=== PATIENT | male | born 1975 | race Caucasian/White ===

== ENCOUNTER 2019-02-25 02:36 | Emergency (ER) | payer OTHER ==
[2019-02-25] MEDS ORDERED: MAG HYDROX/AL HYDROX/SIMETH 30 ML UDCUP PO ONE (03:11)
[2019-02-25] MEDS ORDERED: LIDOCAINE 2% VISCOUS 15 ML UDCUP PO ONE (03:11)
--- NOTE | 2019-02-25 03:42 | EDPHY ---
H & P Stated Complaint: ACID REFLUX IN THROAT WHILE SLEEPING TONIGHT Time Seen by Provider: 02/25/19 02:59 HPI/ROS: Chief Complaint: Possible acid reflux HPI: 43-year-old male woke this morning with discomfort back of his throat with the acidic taste and hoarse voice. He has had this happen once before when he was visiting [facility] a in had been drinking heavily the night before. Patient denies any alcohol tonight. Heriberto about 7:00 a.m.. No chest pain. No shortness of breath. No cough. No headache. No nausea or vomiting. No diarrhea or constipation. No dark tarry stools. ROS: 10 systems were reviewed and were negative except those elements noted in the HPI. PMH: Denies Social History: No smoking, occasional alcohol, no recreational drug use Family History: non-contributory Physical Exam: Gen: Awake, Alert, No Distress HEENT: Nose: no rhinorrhea Eyes: PERRLA, EOMI Mouth: Moist mucosa Neck: Supple, no JVD Chest: nontender, lungs clear to auscultation Heart: S1, S2 normal, no murmur Abd: Soft, non-tender, no guarding Back: no CVA tenderness, no midline tenderness Ext: no edema, non-tender Skin: no rash Neuro: CN II-XII intact, Sensation grossly intact, Strength 5/5 in bilateral upper and lower extremities - Personal History Current Tetanus/Diphtheria Vaccine: Yes Current Tetanus Diphtheria and Acellular Pertussis (TDAP): Yes - Medical/Surgical History Hx Asthma: No Hx Chronic Respiratory Disease: No Hx Diabetes: No Hx Cardiac Disease: No Hx Renal Disease: No Hx Cirrhosis: No Hx Alcoholism: No Hx HIV/AIDS: No Hx Splenectomy or Spleen Trauma: No Other PMH: DENIES - Social History Smoking Status: Never smoked Constitutional: Initial Vital Signs Temperature (C) 36.7 C 02/25/19 02:39 Heart Rate 85 02/25/19 02:39 Respiratory Rate 18 02/25/19 02:39 Blood Pressure 114/92 H 02/25/19 02:39 O2 Sat (%) 96 02/25/19 02:39 O2 Delivery Mode Room Air Allergies/Adverse Reactions: No Known Allergies Allergy (Unverified 02/25/19 02:42) Home Medications: Medication Instructions Recorded No Medications [NO HOME 0 e[place] [facility] [place] Medical Decision Making ED Course/Re-evaluation: 43-year-old male presenting with symptoms consistent with gastroesophageal reflux. Symptoms improved after GI cocktail. I have recommended he start taking famotidine daily. Follow up his physician at [facility] for further evaluation. - Data Points Medications Given: Discontinued Medications Al Hydroxide/Mg Hydroxide (Maalox Susp) 30 ml PO ONCE ONE Stop: 02/25/19 03:12 Last Admin: 02/25/19 03:22 Dose: 30 ml Lidocaine (Lidocaine 2% Viscous) 15 ml PO ONCE ONE Stop: 02/25/19 03:12 Last Admin: 02/25/19 03:22 Dose: 15 ml Departure - Departure Disposition: Home, Routine, Self-Care Clinical Impression: GERD (gastroesophageal reflux disease) Condition: Good Instructions: Gastroesophageal Reflux Disease (ED) Additional Instructions: Take famotidine, available [id number], daily at bedtime. Follow up with your primary care physician at [facility] in 3-4 days for further evaluation. Referrals: [facility] ,. [Edm Groups for Call Sched] - As per Instructions
[2019-02-25 04:04] VITALS: BP 117/87
== END 2019-02-25 04:07 | disposition home or self-care (01) ==
DX: K21.9 Gastro-esophageal reflux disease without esophagitis (principal)